=== PATIENT | male | born 1980 | race Hispanic/Latino ===

== ENCOUNTER → 2025-05-16 | Outpatient (CLI) | payer OTHER ==
--- NOTE | 2025-05-17 07:46 | HMCIMG ---
EXAM: CT Cardiac calcium scoring. CLINICAL HISTORY: Screening. TECHNIQUE: Thin collimated axial CT cardiac images were obtained. A CT scan is done according to ALARA (As Low As Reasonably Achievable). CONTRAST: None. COMPARISON: None provided. FINDINGS: Calcium Score: VESSEL Number of lesions Volume mm3 Equi. Mass/mg Calcium score LM 2 5.5 - 5.7 LAD 1 4.8 - 6.3 LCX 0 0 - 0 RCA 2 2.6 - 2.4 Total 5 12.8 - 14.4 IMPRESSION: The total calcium score is 14.4. This corresponds to the 83rd percentile. /[place]
== END | disposition home or self-care (01) ==
LOC: RAH 12:50
PROVIDERS: ATTEND Internal Medicine Cardiovascular Disease
DX: Z13.6 Encounter for screening for cardiovascular disorders (principal)
CPT/HCPCS: 75571